=== PATIENT | female | born 1975 | race Caucasian/White ===

== ENCOUNTER → 2018-02-10 | Outpatient (CLI) | payer OTHER | LOC: LAB SHORT 14:38 → PLD 14:38 | DX: R87.810 Cervical high risk human papillomavirus (HPV) DNA test positive (principal) | CPT/HCPCS: 88305 ==

== ENCOUNTER 2023-05-13 07:33 | Day surgery (SDC) | payer OTHER | END 2023-05-13 22:48 | disposition home or self-care (01) | LOC: MOI MAM 07:33 → MOI US 05-16 13:45 → MOI MAM 05-20 09:30 → MOI US 05-25 09:30 | DX: R92.8 Other abnormal and inconclusive findings on diagnostic imaging of breast (principal); C50.911 Malignant neoplasm of unspecified site of right female breast; Z17.0 Estrogen receptor positive status [ER+] | CPT/HCPCS: 19083; 77065; 88305; 88342; 88360; A4648 ==